=== PATIENT | male | born 2000 | race Hispanic/Latino ===

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

== ENCOUNTER 2020-03-26 22:50 | Emergency (ER) | payer OTHER ==
[2020-03-26] MEDS ORDERED: IBUPROFEN 600 MG TABLET ONE (23:39)
[2020-03-26] MEDS ORDERED: ACETAMINOPHEN EXTRA STRENGTH 500 MG TABLET ONE (23:39)
== END 2020-03-26 23:47 | disposition home or self-care (01) ==
LOC: EDH 22:50
DX: S63.681A Other sprain of right thumb, initial encounter (principal); Z72.0 Tobacco use; X50.0XXA Overexertion from strenuous movement or load, initial encounter; Y93.89 Activity, other specified; Y92.89 Other specified places as the place of occurrence of the external cause; Y99.8 Other external cause status
CPT/HCPCS: 29125; 73130; 73140

== ENCOUNTER 2020-03-29 17:12 | Emergency (ER) | payer OTHER ==
[2020-03-29] MEDS ORDERED: KETOROLAC TROMETHAMINE 30MG/ML ONE (17:59)
== END 2020-03-29 18:29 | disposition left against medical advice (07) ==
LOC: EDH 17:12
DX: S63.501A Unspecified sprain of right wrist, initial encounter (principal); Z72.0 Tobacco use; X50.9XXA Other and unspecified overexertion or strenuous movements or postures, initial encounter; Y93.89 Activity, other specified; Y92.89 Other specified places as the place of occurrence of the external cause; Y99.8 Other external cause status
CPT/HCPCS: 73110; 96372; 99283; J1885

== ENCOUNTER 2020-03-30 18:29 | Emergency (ER) | payer OTHER ==
[2020-03-30] MEDS ORDERED: KETOROLAC TROMETHAMINE 30MG/ML ONE (19:23)
== END 2020-03-30 20:21 | disposition home or self-care (01) ==
LOC: EDH 18:29
DX: S63.8X1A Sprain of other part of right wrist and hand, initial encounter (principal); X50.0XXA Overexertion from strenuous movement or load, initial encounter; Y93.89 Activity, other specified; Y92.69 Other specified industrial and construction area as the place of occurrence of the external cause; Y99.8 Other external cause status
CPT/HCPCS: 96372; 99283; J1885

== ENCOUNTER 2020-07-20 05:54 | Emergency (ER) | payer OTHER ==
[2020-07-20] MEDS ORDERED: 0.9%NACL 1000ML 1,000 ML IV ONE (06:28)
[2020-07-20 06:44] LABS: BASOPHILS % (AUTO) 1.2 % (0.0-5.0); HEMATOCRIT 41.8 % (42-54); LYMPHOCYTES % (AUTO) 41.4 % (21.0-51.0); MEAN CORPUSCULAR HEMOGLOBIN 30.3 pg (27.0-33.0); MEAN CORPUSCULAR HGB CONC 33.7 g/dL (32.0-36.0); MEAN CORPUSCULAR VOLUME 89.9 fL (80-100); MONOCYTES % (AUTO) 10.4 % (3.0-13.0); NEUTROPHILS % (AUTO) 45.7 % (40.0-77.0); PLATELET COUNT (AUTO) 206 K/uL (130-400); RED BLOOD CELL COUNT(AUTO) 4.65 MIL/uL (4.50-6.20); RED CELL DISTRIBUTION WIDTH 11.9 % (11.0-15.5); WHITE BLOOD COUNT (AUTO) 6.1 K/uL (4.8-10.8)
[2020-07-20 06:58] LABS: ALBUMIN 3.9 g/dL (3.5-5.0); BILIRUBIN,TOTAL 0.5 mg/dL (0.2-1.0); POTASSIUM 3.7 mmol/L (3.5-5.1); TOTAL PROTEIN, SERUM 7.5 g/dL (6.0-8.3)
[2020-07-20 10:51] LABS: AMPHET/METH SCREEN,URINE NEGATIVE (NEGATIVE); BARBITURATE SCREEN, URINE NEGATIVE (NEGATIVE); BENZODIAZEPINES SCREEN,URINE POSITIVE (NEGATIVE); CANNABINOID SCREEN,URINE POSITIVE (NEGATIVE); COCAINE SCREEN,URINE POSITIVE (NEGATIVE); OPIATE SCREEN,URINE NEGATIVE (NEGATIVE); PHENCYCLIDINE SCREEN,URINE NEGATIVE (NEGATIVE)
== END 2020-07-20 11:30 | disposition home or self-care (01) ==
LOC: EDH 05:54
DX: F14.10 Cocaine abuse, uncomplicated (principal); F19.10 Other psychoactive substance abuse, uncomplicated; R42 Dizziness and giddiness; R00.2 Palpitations; T42.4X5A Adverse effect of benzodiazepines, initial encounter; Y92.89 Other specified places as the place of occurrence of the external cause
CPT/HCPCS: 36415; 71045; 80053; 80305; 85025; 93005; 96360; 99285; J7030

== ENCOUNTER 2020-08-01 22:38 | Emergency (ER) | payer OTHER ==
[2020-08-02] MEDS ORDERED: IBUPROFEN 600 MG TABLET ONE (00:32)
[2020-08-02] MEDS ORDERED: ACETAMINOPHEN-CODEINE 300/30MG TAB ONE (00:33)
[2020-08-02] MEDS ORDERED: TETANUS/DIPHTHERIA TOXOID [ADULT] 0.5 ML VIAL IM ONE (00:34)
== END 2020-08-02 00:59 | disposition home or self-care (01) ==
LOC: EDH 22:38
DX: S92.502B Displaced unspecified fracture of left lesser toe(s), initial encounter for open fracture (principal); W18.39XA Other fall on same level, initial encounter; Y93.89 Activity, other specified; Y92.89 Other specified places as the place of occurrence of the external cause; Y99.8 Other external cause status
CPT/HCPCS: 73630; 90471; 90714